=== PATIENT | male | born 1955 | race Caucasian/White ===

== ENCOUNTER 2016-06-26 16:29 | Day surgery (SDC) | payer OTHER ==
[~2016-06-26] VITALS: Ht 180.3 cm; Wt 127.7 kg
[2016-06-26 17:13] LABS: HEMATOCRIT 43.5 % (38.0-50.0); MCH 32.4 PG (29.0-34.0); MCHC 36.3 G/DL (30.0-36.0); MCV 89.1 FL (86-99); MEAN PLAT.VOLUME 10.7 uM^3 (9.0-12.4); PLATELET COUNT 166 K/uL (156-360); RBC DIS.WIDTH-CV 12.8 % (11.8-14.6); RBC DIS.WIDTH-SD 41.1 % (39-53); RED BLOOD COUNT 4.88 M/uL (4.00-5.50); WHITE BLOOD COUNT 14.8 K/uL (4.1-10.2)
[2016-06-26 17:23] LABS: CHLORIDE 107 mEq/L (99-109); POTASSIUM 3.9 mEq/L (3.7-5.4); SODIUM 140 mEq/L (136-147)
[2016-06-26 17:25] LABS: GLUCOSE 141 mg/dL (70-99)
[2016-06-26 17:26] LABS: ANION GAP 12 MEQ/L (2-14)
[2016-06-26 17:27] LABS: TOTAL BILIRUBIN 0.8 mg/dL (0.0-1.0)
[2016-06-26 17:29] LABS: ALKALINE PHOSPHATASE 68 IU/L (3-129); GFR ESTIMATE (CALCULATED) > 59 mL/min/
[2016-06-26 17:30] LABS: UREA NITROGEN (BUN) 10 mg/dL (9-23)
[2016-06-26 20:14] LABS: ADD MIUA? NO; BILIRUBIN NEGATIVE; BLOOD NEGATIVE; COLOR YELLOW ((YELLOW)); GLUCOSE (STRIP) NEGATIVE; KETONES NEGATIVE; LEUKOCYTES NEGATIVE; NITRITE NEGATIVE; PROTEIN (STRIP) NEGATIVE; SPECIFIC GRAVITY 1.015 (1.000-1.030); UCUL ADDED? NO; UROBILINOGEN 0.2 MG/DL (0.2-1.0)
[2016-06-26] MEDS ORDERED: DILANTIN100 MG PO (21:41)
[2016-06-27 00:16] VITALS: BP 112/63
[2016-06-27 04:28] VITALS: BP 115/65
[2016-06-27 06:38] LABS: HEMATOCRIT 39.3 % (38.0-50.0); MCH 32.6 PG (29.0-34.0); MCHC 35.6 G/DL (30.0-36.0); MCV 91.6 FL (86-99); MEAN PLAT.VOLUME 10.9 uM^3 (9.0-12.4); PLATELET COUNT 122 K/uL (156-360); RBC DIS.WIDTH-CV 13.2 % (11.8-14.6); RBC DIS.WIDTH-SD 43.9 % (39-53); RED BLOOD COUNT 4.29 M/uL (4.00-5.50); WHITE BLOOD COUNT 11.5 K/uL (4.1-10.2)
[2016-06-27 07:08] LABS: ALKALINE PHOSPHATASE 50 IU/L (3-129); ANION GAP 7 MEQ/L (2-14); CHLORIDE 108 MEQ/L (99-109); GFR ESTIMATE (CALCULATED) > 59 mL/min/; GLUCOSE 107 mg/dL (70-99); MAGNESIUM 1.9 mg/dl (1.3-2.7); POTASSIUM 4.1 MEQ/L (3.7-5.4); SAMPLE HEMOLYSIS CHECK 0; SAMPLE ICTERIC CHECK 0; SAMPLE LIPEMIA CHECK 0; SODIUM 139 MEQ/L (136-147); TOTAL BILIRUBIN 0.7 MG/DL (0.0-1.0); UREA NITROGEN (BUN) 10 mg/dL (9-23)
[2016-06-27 07:40] VITALS: BP 110/62
[2016-06-27 12:34] VITALS: BP 123/75
[2016-06-27] MEDS ORDERED: PERCOCET 5/31 TABLET PO (12:44)
[2016-06-27] MEDS ORDERED: COLACE100 MG PO (12:44)
== END 2016-06-27 13:19 | disposition home or self-care (01) ==
LOC: EME 16:29 → SDC 21:43 → 2EASTP 23:00 → 2SOUTH 23:00 → 2EASTP 06-27 00:02
PROVIDERS: Surgery
PROC: 0DTJ4ZZ Resection of Appendix, Percutaneous Endoscopic Approach (ICD-10-PCS; principal; 2016-06-26)
DX: K35.3 Acute appendicitis with localized peritonitis (principal); G40.909 Epilepsy, unspecified, not intractable, without status epilepticus
CPT/HCPCS: 74177; 80053; 81003; 83735; 84100; 85027; 88304; 99281; 99285; G0378; J0131; J0330; J1100; J1335; J1650; J1885; J2270; J2405; J2710; J3010; J3480; J7030; J7040